=== PATIENT | female | born 1995 | race Caucasian/White ===

== ENCOUNTER 2023-07-23 01:49 | Emergency (ER) | payer BC ==
[~2023-07-23] VITALS: Ht 160 cm; Wt 75.9 kg
[2023-07-23 01:56] VITALS: TEMP 98.9
[2023-07-23 02:17] LABS: COLLECTION METHOD CLEAN CATCH
[2023-07-23 02:28] LABS: BASO # 0.1 K/mm3 (0.0-0.2); BASO % 1.1 % (0.0-2.0); EOS # 0.7 K/mm3 (0.0-0.7); EOS % 12.5 % (0.0-4.0); GRAN # 1.9 K/mm3 (1.4-6.5); HEMATOCRIT 41.5 % (37.0-47.0); HEMOGLOBIN 14.2 g/dl (12.5-16.0); LYMPH # 1.9 K/mm3 (1.2-3.4); LYMPH % 33.6 % (20.0-51.0); MEAN CELL VOLUME 93 fl (80.0-100.0); MEAN CORPUSCULAR HEMOGLOBIN 32 pg (27-31); MEAN CORPUSCULAR HGB CONC 34 g/dl (33.0-37.0); MEAN PLATELET VOLUME 11.3 fl (7.4-10.4); MONO % 18.6 % (1.7-9.3); PLATELET COUNT 260 K/mm3 (130-400); RED BLOOD COUNT 4.47 M/mm3 (4.10-5.30); REDCELL DISTRIBUTION WIDTH-CV 12.6 % (11.5-14.5)
[2023-07-23] MEDS ORDERED: Morphine 4 MG/ML VIAL IV ONE (02:30)
[2023-07-23] MEDS ORDERED: Ondansetron 4 MG/2 ML VIAL IV ONE (02:30)
[2023-07-23 02:35] LABS: INR 0.9 (0.8-3.0); PROTHROMBIN TIME 9.8 SECONDS (9.7-12.8)
[2023-07-23 02:38] LABS: PARTIAL THROMBOPLASTIN TIME 27.9 SECONDS (26.0-37.0)
[2023-07-23 02:42] LABS: URINE APPEARANCE Hazy (CLEAR/HAZY); URINE BACTERIA Moderate /hpf (NONE SEEN); URINE BLOOD 3+ (NEGATIVE); URINE COLOR Yellow (YELLOW); URINE GLUCOSE Negative (NEGATIVE); URINE KETONE TRACE (NEGATIVE); URINE NITRATE Negative (NEGATIVE); URINE PROTEIN(semi-quant) 1+ (NEGATIVE); URINE RBC >50 /hpf (0-2); URINE UROBILINOGEN 0.2 E.U/dL (0.2-1.0)
[2023-07-23 03:01] LABS: ALBUMIN 3.6 gm/dL (3.5-5.0); BILIRUBIN,TOTAL 0.4 mg/dL (0.2-1.2); CALCIUM 9.9 mg/dL (8.4-10.2); CREATININE, serum 1.01 mg/dL (0.57-1.11); POTASSIUM 3.8 mmol/L (3.5-4.5); TOTAL PROTEIN 7.3 gm/dL (6.2-8.1)
[2023-07-23] MEDS ORDERED: NS 64 ML IV SCH (03:04)
[2023-07-23] MEDS ORDERED: Iohexol 300 - 100 ML VIAL IV ONE (03:04)
[2023-07-23] MEDS ORDERED: FLOMAX 0.40.4 MG/CAP PO (04:08)
[2023-07-23 04:30] VITALS: BP 124/80; PULSE 64
== END 2023-07-23 04:32 | disposition home or self-care (01) ==
LOC: COL.ER 01:49
PROVIDERS: Emergency Medicine
DX: K57.90 Diverticulosis of intestine, part unspecified, without perforation or abscess without bleeding (principal); N13.2 Hydronephrosis with renal and ureteral calculous obstruction; E66.9 Obesity, unspecified
CPT/HCPCS: J2270; J2405; Q9967